=== PATIENT | female | born 1945 | race Caucasian/White ===

== ENCOUNTER 2018-06-02 10:35 | Outpatient (CLI) | payer MEDICARE, SELFPAY ==
[2018-06-02 13:42] LABS: ALT 33 U/L (12-78); AST 25 U/L (15-37); Albumin 3.8 g/dL (3.4-5.0); Alkaline Phosphatase 73 U/L (46-116); Anion Gap 6.3 mmol/L (3-11); BUN 17 mg/dL (7-18); Bilirubin, Total 0.7 mg/dL (0.2-1.0); CO2 28.7 mmol/L (21.0-32.0); CREATININE 1.35 mg/dL (0.55-1.02); Chloride 104 mmol/L (98-107); Estimated GFR 38.33 (mL/min/1.73m2); Glucose 115 mg/dL (70-100); Potassium 5.3 mmol/L (3.5-5.1); Sodium 139 mmol/L (136-145); Total Protein 7.2 g/dL (6.4-8.2)
[2018-06-02 13:47] LABS: Calcium 10.3 mg/dL (8.5-10.1)
== END 2018-06-02 10:55 ==
PROVIDERS: PCP Family Medicine
DX: E03.9 Hypothyroidism, unspecified (principal)
CPT/HCPCS: 36415; 80053

== ENCOUNTER 2018-06-10 01:57 | Outpatient (CLI) | payer MEDICARE, OTHER, SELFPAY ==
--- NOTE | 2018-06-30 11:59 | ZIOP_ITS ---
ZIO PATCH DATE OF DICTATION June 30, [address] 13 days, 17 hours, June 10 - June 23, 2018 INTERPRETATION Baseline rhythm sinus. Occasional single PAC. 96 bursts SVT, longest 17 beat duration, fastest 174 beats per minute. Rare single PVC. Rare couplet. Nonsustained VT noted three times, longest run 13 beat duration, faste st 162 beats per minute. No bradycardia. No triggered events. No symptoms. Average heart rate sinus, 66 beats per minute, range 48-129 beats per minute. Surendra Roman M.D. LUIS CARLOS/domenico T - 06/30/2018
== END 2018-06-10 02:17 ==
PROVIDERS: PCP Family Medicine
DX: R07.89 Other chest pain (principal); I49.9 Cardiac arrhythmia, unspecified; I47.1 Supraventricular tachycardia
CPT/HCPCS: 93225

== ENCOUNTER 2018-06-30 09:20 | Outpatient (CLI) | payer MEDICARE, OTHER, SELFPAY | END 2018-06-30 09:40 | PROVIDERS: PCP Family Medicine; Referring Provider Family Medicine; Visit Provider Internal Medicine Interventional Cardiology | DX: R07.89 Other chest pain (principal); I49.9 Cardiac arrhythmia, unspecified; I47.1 Supraventricular tachycardia | CPT/HCPCS: 0298T ==

== ENCOUNTER 2018-11-29 01:46 | Outpatient (CLI) | payer MEDICARE, OTHER, SELFPAY ==
[2018-11-29 10:03] LABS: ALT 30 U/L (12-78); AST 20 U/L (15-37); Albumin 3.7 g/dL (3.4-5.0); Alkaline Phosphatase 73 U/L (46-116); Anion Gap 10.2 mmol/L (3-11); BUN 10 mg/dL (7-18); Bilirubin, Total 0.7 mg/dL (0.2-1.0); CO2 26.8 mmol/L (21.0-32.0); CREATININE 1.17 mg/dL (0.55-1.02); Calcium 9.2 mg/dL (8.5-10.1); Chloride 105 mmol/L (98-107); Estimated GFR 45.09 (mL/min/1.73m2); Glucose 99 mg/dL (70-100); Sodium 142 mmol/L (136-145); Total Protein 6.7 g/dL (6.4-8.2)
== END 2018-11-29 02:06 ==
PROVIDERS: PCP Family Medicine
DX: G46.4 Cerebellar stroke syndrome (principal); H92.01 Otalgia, right ear; I10 Essential (primary) hypertension; I47.2 Ventricular tachycardia; K62.5 Hemorrhage of anus and rectum; M81.0 Age-related osteoporosis without current pathological fracture
CPT/HCPCS: 36415; 80053

== ENCOUNTER 2019-05-31 02:10 | Outpatient (CLI) | payer MEDICARE, OTHER, SELFPAY ==
[2019-05-31 08:36] LABS: ALT 23 U/L (14-59); AST 24 U/L (15-37); Albumin 3.8 g/dL (3.4-5.0); Alkaline Phosphatase 71 U/L (46-116); Anion Gap 4.7 mmol/L (3-11); BUN 15 mg/dL (7-18); Bilirubin, Total 0.7 mg/dL (0.2-1.0); CO2 29.3 mmol/L (21.0-32.0); CREATININE 1.16 mg/dL (0.55-1.02); Calcium 9.3 mg/dL (8.5-10.1); Chloride 105 mmol/L (98-107); Estimated GFR 45.54 (mL/min/1.73m2); Glucose 108 mg/dL (74-106); Potassium 4.9 mmol/L (3.5-5.1); Sodium 139 mmol/L (136-145); Total Protein 7.3 g/dL (6.4-8.2)
== END 2019-05-31 02:30 ==
PROVIDERS: PCP Family Medicine
DX: N25.9 Disorder resulting from impaired renal tubular function, unspecified (principal)
CPT/HCPCS: 36415; 80053

== ENCOUNTER 2019-11-02 02:24 | Outpatient (CLI) | payer MEDICARE, OTHER, SELFPAY ==
[2019-11-02 08:46] LABS: BUN 17 mg/dL (7-18); CREATININE 1.53 mg/dL (0.55-1.02); Calcium 8.9 mg/dL (8.5-10.1); Chloride 103 mmol/L (98-107); Glucose 111 mg/dL (74-106); Potassium 4.4 mmol/L (3.5-5.1); Sodium 138 mmol/L (136-145)
== END 2019-11-02 02:44 ==
PROVIDERS: PCP Family Medicine
DX: I10 Essential (primary) hypertension; N28.9 Disorder of kidney and ureter, unspecified; H93.90 Unspecified disorder of ear, unspecified ear
CPT/HCPCS: 36415; 80048

== ENCOUNTER 2020-02-23 02:32 | Outpatient (CLI) | payer MEDICARE, OTHER, SELFPAY ==
[2020-02-23 09:34] LABS: BUN 14 mg/dL (7-18); CREATININE 1.26 mg/dL (0.55-1.02); Calcium 9.3 mg/dL (8.5-10.1); Calculated LDL 141 mg/dL (<100); Chloride 102 mmol/L (98-107); Cholesterol 219 mg/dL (<200); Estimated GFR 41.29 (mL/min/1.73m2); Glucose 112 mg/dL (74-106); HDL Cholesterol 43 mg/dL (40-60); Potassium 5.1 mmol/L (3.5-5.1); Sodium 139 mmol/L (136-145); Triglyceride 176 mg/dL (<150)
== END 2020-02-23 02:52 ==
DX: I10 Essential (primary) hypertension (principal); N25.9 Disorder resulting from impaired renal tubular function, unspecified; E78.00 Pure hypercholesterolemia, unspecified
CPT/HCPCS: 36415; 80048; 80061

== ENCOUNTER 2022-04-25 01:08 | Outpatient (CLI) | payer MEDICARE, SELFPAY ==
[2022-04-25 10:39] LABS: ALT 20 U/L (14-59); AST 26 U/L (15-37); Albumin 3.8 g/dL (3.4-5.0); Alkaline Phosphatase 63 U/L (46-116); Anion Gap 5.6 mmol/L (3-11); BUN 15 mg/dL (7-18); Bilirubin, Total 0.7 mg/dL (0.2-1.0); CO2 29.4 mmol/L (21.0-32.0); CREATININE 1.3 mg/dL (0.55-1.02); Calcium 9.6 mg/dL (8.5-10.1); Calculated LDL 154 mg/dL (<100); Chloride 99 mmol/L (98-107); Cholesterol 225 mg/dL (<200); Estimated GFR 42.09 (mL/min/1.73m2); Glucose 112 mg/dL (74-106); HDL Cholesterol 44 mg/dL (40-60); Potassium 4.3 mmol/L (3.5-5.1); Sodium 134 mmol/L (136-145); Total Protein 7.6 g/dL (6.4-8.2); Triglyceride 139 mg/dL (<150)
== END 2022-04-25 01:09 | disposition home or self-care (01) ==
LOC: LOS 01:08
PROVIDERS: PCP Family Medicine; Visit Provider Family Medicine
DX: E78.00 Pure hypercholesterolemia, unspecified (principal); I10 Essential (primary) hypertension; N25.9 Disorder resulting from impaired renal tubular function, unspecified
CPT/HCPCS: 36415; 80053; 80061

== ENCOUNTER 2022-05-27 21:54 | Outpatient (REF) | payer MEDICARE, SELFPAY ==
[2022-05-27 22:43] LABS: Bilirubin Negative (Negative); Blood Negative (Negative); Clarity Clear (Clear); Glucose Negative (Negative); Ketones Negative (Negative); Leukocyte Esterase Small (Negative); Nitrite Negative (Negative); Specific Gravity 1.015 (1.005-1.025); Urobilinogen 0.2 EU/dL (Up TO 0.2)
[2022-05-27 23:01] LABS: Bacteria Rare HPF (Negative); C & S Indicated? Yes; Crystals Negative HPF (Negative); Epithelial Cells Few HPF (Negative); Mucus Trace (Negative); RBC Negative HPF (0-2)
[2022-05-27 23:11] LABS: COMMENT (LAB VIEW ONLY) 56.63 mg/dL; Microalb ug/mg Crea 29.5 ug/mg Cr
== END 2022-05-27 21:55 | disposition home or self-care (01) ==
LOC: LBN 21:54
PROVIDERS: PCP Family Medicine; Visit Provider Family Medicine
DX: I10 Essential (primary) hypertension (principal); N25.89 Other disorders resulting from impaired renal tubular function; R30.0 Dysuria
CPT/HCPCS: 81003; 81015; 82043; 82570; 87086

== ENCOUNTER 2022-08-14 03:21 | Outpatient (CLI) | payer MEDICARE, SELFPAY ==
[2022-08-14 13:17] LABS: BUN 14 mg/dL (7-18); CREATININE 1.2 mg/dL (0.55-1.02); Calcium 9.6 mg/dL (8.5-10.1); Chloride 100 mmol/L (98-107); Estimated GFR 46.33 (mL/min/1.73m2); Glucose 89 mg/dL (74-106); Potassium 4.6 mmol/L (3.5-5.1); Sodium 134 mmol/L (136-145)
== END 2022-08-14 03:22 | disposition home or self-care (01) ==
LOC: LBO 03:21
PROVIDERS: PCP Family Medicine; Visit Provider Family Medicine
DX: I10 Essential (primary) hypertension (principal)
CPT/HCPCS: 36415; 80048

== ENCOUNTER 2023-08-26 08:48 | Outpatient (CLI) | payer MEDICARE, SELFPAY ==
[2023-08-26 16:47] LABS: Anion Gap 9.5 mmol/L (3-11); BUN 19 mg/dL (7-18); CO2 27.5 mmol/L (21.0-32.0); CREATININE 1.3 mg/dL (0.55-1.02); Calcium 9.7 mg/dL (8.5-10.1); Calculated LDL 163 mg/dL (<100); Chloride 104 mmol/L (98-107); Cholesterol 241 mg/dL (<200); Estimated GFR 41.83 (mL/min/1.73m2); Glucose 100 mg/dL (74-106); HDL Cholesterol 51 mg/dL (40-60); Potassium 4.4 mmol/L (3.5-5.1); Sodium 141 mmol/L (136-145); Triglyceride 139 mg/dL (<150)
== END 2023-08-26 08:49 | disposition home or self-care (01) ==
LOC: LOS 08:48
PROVIDERS: PCP Family Medicine; Referring Provider Family Medicine; Visit Provider Family Medicine
DX: I10 Essential (primary) hypertension (principal); Z13.6 Encounter for screening for cardiovascular disorders; E78.00 Pure hypercholesterolemia, unspecified
CPT/HCPCS: 36415; 80048; 80061

== ENCOUNTER 2024-03-14 01:41 | Outpatient (CLI) | payer MEDICARE, SELFPAY ==
--- NOTE | 2024-03-14 07:45 | DI.DEXA_ITS ---
Exam(s) XR DEXA BONE DENSITY W/WO LA EXAM: XR DEXA BONE DENSITY W/WO LA CLINICAL HISTORY: Screening for osteoporosis,menopausal disorder,n95.9 TECHNIQUE: COMPARISON: DX LA from 12/27/2008 FINDINGS: Lateral Spine Image: Unremarkable. No compression deformities identified. Left hip: Total T-Score: -2.4. This compares to -2.5 on the prior examination. Total Z-Score: -0.4 T- and Z-scores: Findings are consistent with osteopenia. There is osteoporosis in the femoral neck with a T-score of -2.9. Lumbar Spine: Total T-Score: -1.2. This compares to -2.1 on the prior examination. Total Z-Score: 1.5 T- and Z-scores: Findings are consistent with osteopenia. There is no evidence of osteoporosis. Left forearm: Total T-score: -3.3 Total Z-score:-0.2 T and Z-score is: Findings are consistent with osteoporosis. IMPRESSION: Osteoporosis in the left femoral neck and the left forearm.
== END 2024-03-14 02:01 ==
LOC: DI 01:42
PROVIDERS: PCP Family Medicine; Visit Provider Family Medicine
DX: N95.9 Unspecified menopausal and perimenopausal disorder (principal); Z13.820 Encounter for screening for osteoporosis; M81.0 Age-related osteoporosis without current pathological fracture
CPT/HCPCS: 77080

== ENCOUNTER 2024-09-01 10:12 | Outpatient (CLI) | payer MEDICARE, SELFPAY ==
[2024-09-01 10:52] LABS: COMMENT (LAB VIEW ONLY) 92.17 mg/dL; PROTEIN 17.9 mg/dL; Prot/Crea Ur Ratio 0.19
[2024-09-01 11:01] LABS: ALT 26 U/L (14-59); AST 23 U/L (15-37); Albumin 3.8 g/dL (3.4-5.0); Alkaline Phosphatase 68 U/L (46-116); Anion Gap 8.1 mmol/L (3-11); BUN 18 mg/dL (7-18); Bilirubin, Total 0.9 mg/dL (0.2-1.0); CO2 27.9 mmol/L (21.0-32.0); CREATININE 1.4 mg/dL (0.55-1.02); Calcium 9.5 mg/dL (8.5-10.1); Chloride 105 mmol/L (98-107); Estimated GFR 38.03 (mL/min/1.73m2); Glucose 107 mg/dL (74-106); Potassium 3.9 mmol/L (3.5-5.1); Sodium 141 mmol/L (136-145); Total Protein 7.4 g/dL (6.4-8.2)
[2024-09-01 11:34] LABS: Ferritin 91 ng/mL (8-252); Vitamin D 25 Total 41 ng/mL (30-100)
[2024-09-01 19:14] LABS: Parathyroid Hormone,Intact 48 pg/mL (19-88)
== END 2024-09-01 10:13 | disposition home or self-care (01) ==
LOC: LBO 10:12
PROVIDERS: PCP Family Medicine; Visit Provider Family Medicine
DX: N18.32 Chronic kidney disease, stage 3b (principal)
CPT/HCPCS: 36415; 80053; 82306; 82565; 82728; 83970; 84156

== ENCOUNTER 2025-02-23 09:48 | Outpatient (CLI) | payer MEDICARE, SELFPAY ==
--- NOTE | 2025-02-23 09:45 | RT.EKG_ITS ---
APPROVED REPORT Exam: Resting ECG Reason for Exam: Fainted Patient Location: O HR:71 bpm ECG Measurements Heart Rate 71 AXIS FL 154 P 26 QRSd 110 QRS -18 QT 404 T 38 QTc 439 Conclusion Sinus arrhythmia...V-rate 51- 79, variation>10% Probable left ventricular hypertrophy...(RaVL+SV3)xQRSd >300
== END 2025-02-23 09:49 | disposition home or self-care (01) ==
LOC: DI.CM 09:48
PROVIDERS: PCP Family Medicine; Visit Provider Nurse Practitioner Family
DX: R07.89 Other chest pain (principal)
CPT/HCPCS: 93010

== ENCOUNTER 2025-02-23 10:55 | Emergency (ER) | payer MEDICARE, SELFPAY ==
[2025-02-23] VITALS (34 sets, daily range): BP systolic 130–160; BP diastolic 58–132; PULSE 66–87; RESP 15–31; TEMP 37.3; O2SAT 92–99
--- NOTE | 2025-02-23 10:45 | RT.EKG_ITS ---
APPROVED REPORT Exam: Resting ECG Reason for Exam: ekg Patient Location: E HR:70 bpm ECG Measurements Heart Rate 70 AXIS LA 180 P 51 QRSd 94 QRS 1 QT 410 T 40 QTc 443 Conclusion Sinus rhythm...normal P axis, V-rate 60- 99 No Occlusion MN
--- NOTE | 2025-02-23 10:57 | ED.GENADUL_ITS ---
Discharge Plan Disposition Patient Disposition: Against Medical Advice Discharge Details Clinical Impression: Leukopenia, Thrombocytopenia, Erythrocytosis, Acute hyponatremia Primary Care Provider: [facility] ED Provider: Trever Del Valle Home Meds and New Rx's Prescriptions: Continued losartan 100 mg tablet 100 mg PO DAILY Qty: 90 3RF calcium carbonate-vitamin D3 1 EACH tablet 1 ea PO DAILY Rx Instructions: 600mg/800iu aspirin 325 MG tablet 325 mg PO DAILY atenolol 50 mg tablet 50 mg PO DAILY Qty: 90 3RF atorvastatin 20 mg tablet 20 mg PO QHS Qty: 90 3RF Discharge Instructions Additional Instructions: You were seen in the emergency department in the setting of your episode of feeling lightheaded. As we discussed there is a risk that you could have a seizure or dangerous rhythm in your heart or you could . It was recommended that you remain overnight in the hospital for monitoring. You declined and elected to withdraw your consent for care. You signed out AGAINST MEDICAL ADVICE. If you change your mind or you feel unwell or if you have any other concerns please return to the emergency department. Otherwise please follow-up with your primary care provider. You had multiple abnormalities in your blood work. Your sodium level was low. Your red blood cell count was high. Both your platelets and your white blood cell counts were low. If you develop fevers or any other concerns please return to the emergency department. Discharge Data Discharge Date/Time-TO BE ENTERED AT DEPARTURE: 02/23/25 14:13 HPI General Date/Time Provider Initiated Documentation: 02/23/25 10:56 . HPI Narrative: MDM This is an overall very well-appearing normothermic and nontachycardic 79-year-old female with presyncopal episode remote history of V. tach concern for the possibility of dysrhythmia versus ischemia in setting of prehospital ECG depressions for which patient will undergo troponin testing and assessment of basic electrolytes. Patient is neurologically intact without any focal weaknesses nor dizziness so not suspicion for CVA and do not feel patient would be a TNK candidate. In the absence of dizziness and nystagmus I did not apply the hints exam. Patient no pain out of proportion to suggest necrotizing soft tissue infection. No cough nor abnormal lung sounds to suggest pneumonia. No black nor bloody stools to suggest symptomatic anemia from GI bleed so did not send type and screen. I considered PE however in the absence of shortness of breath chest pain tachycardia and hypoxia I felt that the risks of dimer testing with downstream angio outweighed the benefits. Soft nontender abdomen so I am not suspicious for intra-abdominal infection. No dysuria or frequency to suggest UTI. Patient does not endorse sudden onset headache to suggest increased risk for subarachnoid hemorrhage. No recent chiropractic manipulation to suggest increased risk for cervical arterial dissection. No rash to neck to suggest zoster. No history of head strike to suggest benefit from CT head. Per Nexus criteria, cervical CT not obtained. The patient had no c-spine midline tenderness, no evidence of intoxication, was AAOx3, had no focal neurological deficits, and no painful distracting injuries. 12:07 PM CBC shows leukopenia and new thrombocytopenia with erythrocytosis. Differential includes dehydration-related hemoconcentration, evolving myeloproliferative or myelodysplastic process, medication effect, or less likely early infectious etiology. No current evidence of hemodynamic instability or overt ACS. 12:47 PM CBC shows CKD no superimposed JOANA. Mildly elevated BUN. Mild gap acidosis but normal bicarbonate??not consistent with DKA. Mild hyponatremia. Normal reassuring calcium. Normal reassuring magnesium. Initial normal reassuring troponin. Patient's hyponatremia is new compared to prior. Given that she is not symptomatic I do not feel as if she requires hypertonic saline at this juncture. 1:52 PM I met with the patient. She continues to feel improved. She was not dizzy nor having chest pain. Her repeat troponin was reassuring. I did advise her of her low sodium level. I recommended hospitalization. She declined. She said that she had 2 dogs. She said that there is no one to take care of her dogs. I asked her if her friend would be willing to help. She said that this was not an option. We discussed that there is risks of hyponatremia including syncope sei zures . There is also possibility that she had had a dysrhythmia causing her presyncopal episode. She understood these risks and requested discharge. We discussed that if she had recurrent symptoms or had any concerns that she should return to the emergency department. I requested to speak to the patient's children. Advised patient that I felt that her children would advise hospitalization. She preferred that I did not speak with her children. 1. I explained the current situation and condition to the patient. 2. I explained the recommended treatment for this condition ?hospitalization for monitoring on telemetry trending troponins and monitoring sodium levels 3. I explained the risk of not having the recommended treatment ?seizures dysrhythmia and 4. The patient understands this information has no questions, and repeated back this information. 5. The patient states that they need to leave and will return if her symptoms worsen 6. Mental status is lucid and the patient has decision-making capacity. 7. Patient is withdrawing her consent for care. I advised her that if she had any other concerns or change her mind that she should return to the emergency department. She understood her return indications and withdrew her consent for care. Diagnostic interpretations performed by me: Per my independent interpretation EKG shows: Narrow complex normal sinus rhythm at a rate of 70. Normal axis. Intervals within normal limits. No ST segment abnormalities. No T wave inversions. Compared to prior dated earlier today sinus rhythm has replaced sinus arrh ythmia. Patient now has normal axis. Patient does have persistent ST segment depressions in V6. HPI This is a patient with a history of a recent fall presenting for evaluation. The patient experienced a fall this morning after taking a shower, which was unusual as she typically does not shower frequently. After applying soap, she felt herself gently falling to the floor. She did not sustain any head injury or lose consciousness during the incident. She did not experience any lightheadedness prior to the fall. Post-fall, she consumed breakfast and contacted her son, who advised her to seek medical attention. She sought care at an urgent care facility where an EKG was performed, revealing some abnormalities suggestive of a potential cardiac event. Currently, she reports feeling well and is not experiencing any chest pain, abdominal pain, dysuria, or weakness in her extremities. She also reports no difficulty breathing. She had been experiencing neck discomfort since the morning, but this resolved after her fall. She describes a sensation of an unhappy feeling rather than a headache. She has not experienced any episodes of vomiting or nausea since she was 10 years old. Exam General: Well-appearing in no acute distress speaking in complete sentences. Head: Normocephalic, atraumatic. Eye:[Pupils equal, round reactive to light.] Extraocular eye movements intact. No conjunctival injection. No scleral icterus. Ear, nose, mouth, throat: Grossly normal inspection. Normal voice, handling secretions normally. Neck: Trachea midline. Cardiovascular: Well-perfused distal extremities. Regular rate and rhythm. Respiratory: Nonlabored respiration. Clear lungs bilaterally. Gastrointestinal: Nondistended abdomen. Soft. Nontender. Musculoskeletal: No edema. Moving all 4 extremities spontaneously. Skin: Normal for age and race, grossly normal temperature and turgor. No acute rash. Neurologic: Alert and appropriate, no apparent acute deficits. Cranial nerves I I through XII intact grossly. No dysmetria. Visual chase intact by confrontation. Psychiatric: Mood and manner are appropriate. Grooming and personal hygiene are appropriate. Related Data Home Medications ?Medication ?Instructions ?Recorded ?Confirmed calcium 600 mg (as 1 ea PO DAILY 07/27/1202/23 carbonate)-vitamin D3 5 mcg (200 unit) tablet aspirin 325 mg tablet 325 mg PO DAILY 01/24/14 atenolol 50 mg tablet 50 mg PO DAILY #90 tab-caps 08/01/24 02/23/25 atorvastatin 20 mg tablet 20 mg PO QHS #90 tabs 02/23/25 losartan 100 mg tablet 100 mg PO DAILY #90 tabs 02/23/25 Previous Rx's ?Medication ?Instructions ?Recorded atenolol 50 mg tablet 50 mg PO DAILY #90 tab-caps 08/01/24 atorvastatin 20 mg tablet 20 mg PO QHS #90 tabs losartan 100 mg tablet 100 mg PO DAILY #90 tabs Allergies Allergy/AdvReac Type Severity Reaction Status Date / Time amlodipine Allergy Severe Swelling/Ed Verified 02/23/25 11:01 ken rosuvastatin AdvReac Intermediate loose Verified 02/23/25 11:01 stools & incontinence tide detergent Allergy Severe RASH Uncoded 02/23/25 11:01 [facility] All Active Problems (Updated 02/23/25 @ 13:55 by Trever Del Valle MD) Acute hyponatremia (Acute) Erythrocytosis (Acute) Thrombocytopenia (Chronic) Leukopenia (Acute) CKD stage 3b, GFR 30-44 ml/min (Acute) Osteoporosis (Chronic) Hypercholesterolemia (Chronic 06/03/16) Hypertension (Chronic) Medical History History of tobacco use (1987) 15 packyr hx, quit 1987 Closed fracture of clavicle (11/08/07) Herpes zoster Ventricular tachycardia (01/24/14) History of [place] after TIA 2014 at [facility] [place] 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 No problems noted. Maternal Grandmother , 81 Essential hypertension Heart disease Paternal Grandmother Essential hypertension Heart disease Brother Essential hypertension Son No problems noted. Son No problems noted. Daughter Depression Family History CHF (congestive heart failure) Heart disease Myocardial infarction Social History Smoking/Tobacco Use Status: Former Tobacco Use tobacco type: cigarettes Quit Date: 05/11/87 Tobacco: How many years used: 26 Second Hand Exposure: Yes Smoking risk assessment performed?: Yes Alcohol Intake: current Alcohol Intake frequency: a few times a month Alcohol type: beer and wine Drug use: Never Substance use type: does not use Adopted: No Caregiver/Support person: No Foster care: No Household members: none Housing: house Number of Children: 3 number of grandchildren: 3 Communication Needs: Hard of Hearing Education Level: college Details: Doctorate in Education. 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 Pets and animals: Yes Pets and animals: dog(s) Sexually active: No Do you think of yourself as: straight/heterosexual Current gender identity: female What is your relationship status?: How often do you talk on the phone with friends or family?: three or more times per week How often do you get together with friends or relatives?: three or more times per week Do you belong to any clubs or organized social groups?: yes Panel score (0-1 are the most socially isolated patients): 2 What type of physical activity do you participate in: walking and other Details: hiking,yard work Duration: 30-45 minutes/day Frequency: daily Kylah/Rastafari: No preference Special kylah needs: No Seatbelt use: always Helmet use: No Drive intox or ride w/intox vibratory pile driver: No Working smoke detector in home: Yes Carbon monox detector in home: Yes Firearms in home: Yes Do you feel safe in your relationship?: Yes Victim of physical abuse: No Victim of sexual abuse: No Additional Social history: Enjoys travelling, caring for her poodles. Does volunteer work for [employer].
[2025-02-23 11:54] LABS: Abs Immature Grans 0.05 10^3/uL (0.0-0.06); HCT 47.2 % (36.0-46.0); HGB 16.1 g/dL (11.2-15.7); Immature Grans % 1.4 %; MCH 29.9 pg (27.0-33.0); MCHC 34.1 % (32.0-36.0); MCV 88 fL (80-95); MPV 10.7 fL (8.0-11.0); Platelet Count 107 10^3/uL (130-400); RBC 5.38 10^6/uL (3.93-5.22); RDW 12.5 % (11.7-14.6); RDW-SD 40.6 fL; WBC 3.70 10^3/uL (4.4-10.8)
[2025-02-23 12:36] LABS: Anion Gap 11.5 mmol/L (3-11); BUN 19 mg/dL (7-18); CO2 21.5 mmol/L (21.0-32.0); Calcium 8.6 mg/dL (8.5-10.1); Chloride 93 mmol/L (98-107); Estimated GFR 41.31 (mL/min/1.73m2); Glucose 126 mg/dL (74-106); Magnesium 2.1 mg/dL (1.8-2.4); Potassium 3.7 mmol/L (3.5-5.1); Sodium 126 mmol/L (136-145); Troponin I 11 ng/L (<or=51)
[2025-02-23 13:39] LABS: Troponin I 11 ng/L (<or=51)
== END 2025-02-23 14:13 | disposition left against medical advice (07) ==
PROVIDERS: Emergency Provider Emergency Medicine; PCP Family Medicine
DX: E87.1 Hypo-osmolality and hyponatremia (principal); D75.1 Secondary polycythemia; D69.6 Thrombocytopenia, unspecified; D72.819 Decreased white blood cell count, unspecified
CPT/HCPCS: 99284 ×2; 36415; 80048; 93005; 83735; 84484; 85025; 93010

== ENCOUNTER 2025-02-27 08:13 | Emergency (ER) | payer MEDICARE, SELFPAY ==
[2025-02-27] VITALS (47 sets, daily range): BP systolic 136–183; BP diastolic 67–99; PULSE 65–81; RESP 10–34; O2SAT 94–98
--- NOTE | 2025-02-27 08:15 | RT.EKG_ITS ---
APPROVED REPORT Exam: Resting ECG Reason for Exam: syncope Patient Location: E HR:77 bpm ECG Measurements Heart Rate 77 AXIS MI 148 P -1 QRSd 106 QRS -26 QT 399 T 5 QTc 451 Conclusion Sinus rhythm...normal P axis, V-rate 60- 99 Left ventricular hypertrophy...multiple voltage criteria
--- NOTE | 2025-02-27 08:15 | DI.RAD_ITS ---
Exam(s) XR PORTABLE CHEST AP EXAM: XR PORTABLE CHEST AP CLINICAL HISTORY: syncope TECHNIQUE: 2D digital imaging was performed of the chest. One image was obtained. An AP view was obtained. COMPARISON: No exams were available for comparison FINDINGS: MEDIASTINUM: Normal. HEART: Normal. PULMONARY VASCULATURE: Normal. LUNGS: There are no focal consolidating infiltrates. PLEURAL SPACE: No pleural effusion or pneumothorax. BONE:Within normal limits for the patient's age. OTHER FINDINGS:Normal. IMPRESSION: No acute pulmonary findings. DATA REPOSITORY: RADIATION DOSE DELIVERED:
[2025-02-27 09:08] LABS: Abs Immature Grans 0.08 10^3/uL (0.0-0.06); HCT 39.3 % (36.0-46.0); HGB 13.6 g/dL (11.2-15.7); MCH 29.6 pg (27.0-33.0); MCHC 34.6 % (32.0-36.0); MCV 85 fL (80-95); MPV 10.8 fL (8.0-11.0); Platelet Count 125 10^3/uL (130-400); RBC 4.60 10^6/uL (3.93-5.22); RDW 13.1 % (11.7-14.6); RDW-SD 40.9 fL; WBC 9.71 10^3/uL (4.4-10.8)
[2025-02-27 09:29] LABS: ALT 108 U/L (14-59); AST 98 U/L (15-37); Albumin 2.5 g/dL (3.4-5.0); Alkaline Phosphatase 278 U/L (46-116); Anion Gap 9.9 mmol/L (3-11); BUN 17 mg/dL (7-18); Bilirubin, Total 2.1 mg/dL (0.2-1.0); CO2 23.1 mmol/L (21.0-32.0); Calcium 8.2 mg/dL (8.5-10.1); Chloride 99 mmol/L (98-107); Estimated GFR 50.48 (mL/min/1.73m2); Glucose 119 mg/dL (74-106); Magnesium 2.0 mg/dL (1.8-2.4); Potassium 4.2 mmol/L (3.5-5.1); Sodium 132 mmol/L (136-145); Total Protein 6.2 g/dL (6.4-8.2); Troponin I 7 ng/L (<or=51)
[2025-02-27 09:48] LABS: Immature Grans % 0.0 %; RBC Morphology Normal
--- NOTE | 2025-02-27 10:48 | W.ED.GENAD ---
Discharge Plan Disposition Patient Disposition: Home Discharge Details Clinical Impression: Acute hyponatremia, Abnormal LFTs, Hypertension Primary Care Provider: Le Calix ED Provider: Gianfranco Sanchez Home Meds and New Rx's Prescriptions: No Action losartan 100 mg tablet 100 mg PO DAILY Qty: 90 3RF calcium carbonate-vitamin D3 1 EACH tablet 1 ea PO DAILY Rx Instructions: 600mg/800iu aspirin 325 MG tablet 325 mg PO DAILY atenolol 50 mg tablet 50 mg PO DAILY Qty: 90 3RF atorvastatin 20 mg tablet 20 mg PO QHS Qty: 90 3RF Discharge Instructions Instructions: Dehydration, Adult ED, Dementia ED Additional Instructions: Please follow-up with your primary care provider regarding your visit to the emergency department today. Be sure to discuss results of all test performed here today to include radiology, and laboratory testing as well as results for any pending cultures. Be sure to discuss with your doctor further care and follow-up for dementia, and if they would recommend follow-up with a neurologist. As discussed, your sodium levels were improved however still somewhat decreased. I would advise continuation of drinking electrolyte drinks and eating plenty of food, as I suspect this was the underlying cause of your presentation to the emergency department this past . Should your symptoms worsen, or if you develop new concerning symptoms, please return immediately emergency department for further evaluation. Discharge Data Discharge Date/Time-TO BE ENTERED AT DEPARTURE: 02/27/25 14:39 HPI General Date/Time Provider Initiated Documentation: 02/27/25 08:15. HPI Narrative: MDM/Narrative: 79-year-old female with a past medical history of hypertension, CKD presents for confusion. Given recent workup notable for significant hyponatremia, there is concern for altered mental status secondary to persistent hyponatremia although by history this is improved with improved oral intake administered by her son. Although CVA is on the differential, I would be less suspicious of the cause of this patient's symptoms in the setting of known hyponatremia, no other focal neurologic deficit, and improving overall mental status. However given concern for stroke will obtain CTA brain and neck, to assess for possible recent strokes or other explanation for the patient's symptoms. Otherwise we will assess for other causes of possible encephalopathy to include metabolic and infectious etiology with urine testing, blood work, chest x-ray. ED course: Labs notable for mild transaminitis and elevated alk phos and total bilirubin patient without any abdominal tenderness nausea or vomiting, these findings are of unclear significance and will instruct them to follow-up in outpatient setting. Sodium today is 132 significantly improved from previous level of 126, at this time not requiring patient's therapy we will continue to advise p.o. intake of electrolyte beverages and food with free water restriction. CT imaging negative for any acute findings however significant microvascular atrophy noted as well as some encephalomalacia which I suspect is likely the true underlying cause of the patient's worsening forgetfulness as per the son. Plan of care discussed with the patient and her son, patient states that she is feeling much better, they are both in agreement with plan to follow-up with Dr. Calix and her PCP for further management and likely referral to neurology for treatment of suspected mild microvascular dementia. 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 Patient is at this time accompanied by her adult son who is concerned that she has not been behaving correctly. He notes that she is more forgetful than normal, and after she left the hospital against medical vice he drove up from [place] to stay with her for the weekend. He notes that initially she was severely confused, and was having difficulty eating. He noted that since her salt level was low he brought multiple electrolyte plenty drinks, which she has been using over the weekend and her mental status has significantly improved. Today when they were attempting to arrange follow-up appointments with her primary care, they were unable to have an appointment today and they were advised to come to the emergency department for further eval. They note that 4 days ago prior to presenting the emergency department she fell down and is unclear if she passed out or not, she has no prior seizure history, denies any associated chest pain, nausea, vomiting, or similar symptoms since then. Also denies any acute injuries at the time of fall. The son is concerned that given her family history of strokes that she may have a stroke which would be accounting for her behavior. ROS: Negative besides as mentioned above Exam: Gen: A&O NAD HEENT: NCAT, EOMI, not icteric. External ears normal. No rhinorrhea. Moist mucous membranes. Neck: Supple, full range of motion, no observable masses, No meningeal sign. Lungs: No Respiratory distress. CV: RRR, no edema. Abdomen: Soft, nondistended, No rebound tenderness. MSK: No joint swelling, no redness. Skin: No rashes, petechiae, lesions. Normal color per patient. Neuro: Normal Gait, Grossly intact. Psych: Appropriate for situation. Rhythm: NSR Rate: [] [place]: Normal axis Intervals: Normal intervals Other findings: No acute ST segment or T wave changes to suggest acute ischemia. Labs: Laboratory Tests Range/Units 02/27/25 02/27/25 09:00 10:40 WBC (4.4-10.8) 10^3/uL 9.71 RBC (3.93-5.22) 10^6/uL 4.60 Hgb (11.2-15.7) g/dL 13.6 Hct (36.0-46.0) % 39.3 MCV (80-95) fL 85 MCH (27.0-33.0) pg 29.6 MCHC (32.0-36.0) % 34.6 RDW (11.7-14.6) % 13.1 Plt Count (130-400) 10^3/uL 125 L MPV (8.0-11.0) fL 10.8 Immature Gran % % 0.0 Neutrophils % % 74.0 Lymphocytes % % 15.0 Atypical Lymphs % % 5 Monocytes % % 6.0 Eosinophils % % 0.0 Basophils % % 0.0 Nucleated RBC % (0.0-0.3) % 0.0 Absolute Neutrophils (1.2-6.7) 10^3/uL 7.19 H Absolute Lymphocytes (1.2-3.4) 10^3/uL 1.94 Absolute Monocytes (0.1-0.8) 10^3/uL 0.58 Absolute Eosinophils (0.0-0.7) 10^3/uL 0.00 Absolute Basophils (0.0-0.2) 10^3/uL 0.00 RBC Morphology Normal VBG Lactate (<or=2.0) mmol/L 1.2 Sodium (136-145) mmol/L 132 L Potassium (3.5-5.1) mmol/L 4.2 Chloride (98-107) mmol/L 99 Carbon Dioxide (21.0-32.0) mmol/L 23.1 Anion Gap (3-11) mmol/L 9.9 BUN (7-18) mg/dL 17 Creatinine (0.55-1.02) mg/dL 1.1 H Est GFR (CKD-EPI 2020) (mL/min/1.73m2) 50.48 Glucose (74-106) mg/dL 119 H Calcium (8.5-10.1) mg/dL 8.2 L Magnesium (1.8-2.4) mg/dL 2.0 Total Bilirubin (0.2-1.0) mg/dL 2.1 H AST (15-37) U/L 98 H ALT (14-59) U/L 108 H Alkaline Phosphatase (46-116) U/L 278 H Troponin I (<or=51) ng/L 7 7 Total Protein (6.4-8.2) g/dL 6.2 L Albumin (3.4-5.0) g/dL 2.5 L Radiology: Exam(s) XR PORTABLE CHEST AP EXAM: XR PORTABLE CHEST AP CLINICAL HISTORY: syncope TECHNIQUE: 2D digital imaging was performed of the chest. One image was obtained. An AP view was obtained. COMPARISON: No exams were available for comparison FINDINGS: MEDIASTINUM: Normal. HEART: Normal. PULMONARY VASCULATURE: Normal. LUNGS: There are no focal consolidating infiltrates. PLEURAL SPACE: No pleural effusion or pneumothorax. BONE:Within normal limits for the patient's age. OTHER FINDINGS:Normal. IMPRESSION: No acute pulmonary findings. Exam(s) CT BRAIN NECK CTA EXAM: CT BRAIN NECK CTA CLINICAL HISTORY: syncope. TECHNIQUE: Imaging Protocol: Axial CT angiography was performed with multi-slice acquisition and multi-planar and/or 3D reconstructions. CONTRAST MATERIAL: Intravenous: Omnipaque 350 contrast volume:70 mL COMPARISON: CT HEAD WITHOUT CONTRAST from 01/02/2014 FINDINGS: CT Head W/O and W: Ventricles and Extra axial spaces: Normal in size and morphology for the patient's age. Hemorrhage: None. Cerebral parenchyma: There are areas of decreased attenuation in the white matter consistent with chronic microvascular ischemic disease. There is an area of encephalomalacia involving the left cerebellum. No evidence of an acute territorial infarct is seen at this time. Midline shift: None. Brainstem/Cerebellum: Normal. Calvarium: Normal. Visualized Paranasal sinuses/Mastoids: Clear. Soft Tissues: Unremarkable. Enhancement: Unremarkable. CTA Neck W: Common Carotid: Right: No dissection, occlusion or significant stenosis. Left: No dissection, occlusion or significant stenosis. External Carotid: Right: No occlusion or significant stenosis. Left: No occlusion or significant stenosis. Internal Carotid: Right: No dissection, occlusion or significant stenosis. Left: No dissection, occlusion or significant stenosis. Mild atherosclerotic calcification in the proximal internal carotid artery but no significant stenosis is present. Vertebral Artery: Right: No dissection, occlusion or significant stenosis. Left: No dissection, occlusion or significant stenosis. Lung Apices: Moderately severe centrilobular emphysematous changes are present. Bones: Within normal limits for the patient's age. Soft Tissues: Normal. Thyroid gland: Unremarkable. CTA Brain W: Internal Carotid Arteries: There is mild atherosclerotic calcification in the cavernous portions of the internal carotid arteries bilaterally but no significant stenosis is seen. No aneurysm or occlusion is present. Anterior Cerebral Arteries: Right: No aneurysm, occlusion or significant stenosis. Left: No aneurysm, occlusion or significant stenosis. Middle Cerebral Arteries: Right: No aneurysm, occlusion or significant stenosis. Left: No aneurysm, occlusion or significant stenosis. Posterior Cerebral Arteries: Both posterior cerebral arteries arise predominantly from the posterior communicating arteries which is a normal variant. Right: No aneurysm, occlusion or significant stenosis. Left: No aneurysm, occlusion or significant stenosis. Vertebral Arteries: Right: No aneurysm, occlusion or significant stenosis. Left: No aneurysm, occlusion or significant stenosis. Basilar Artery: No aneurysm, occlusion or significant stenosis. IMPRESSION: 1. No large vessel occlusion or significant stenosis on the CT angiography of the head. 2. No acute intracranial process. 3. No occlusion or significant stenosis on the CT angiography of the neck. Related Data Home Medications ?Medication ?Instructions ?Recorded ?Confirmed calcium 600 mg (as 1 ea PO DAILY 07/27/12 02/27/25 carbonate)-vitamin D3 5 mcg (200 unit) tablet aspirin 325 mg tablet 325 mg PO DAILY 01/24/14 02/27/25 atenolol 50 mg tablet 50 mg PO DAILY #90 tab-caps 08/01/24 02/23/25 atorvastatin 20 mg tablet 20 mg PO QHS #90 tabs 08/08/24 02/27/25 losartan 100 mg tablet 100 mg PO DAILY #90 tabs 08/31/24 02/27/25 Previous Rx's ?Medication ?Instructions ?Recorded atenolol 50 mg tablet 50 mg PO DAILY #90 tab-caps 08/01/24 atorvastatin 20 mg tablet 20 mg PO QHS #90 tabs 08/08/24 losartan 100 mg tablet 100 mg PO DAILY #90 tabs 08/31/24 Allergies Allergy/AdvReac Type Severity Reaction Status Date / Time amlodipine Allergy Severe Swelling/Ed Verified 02/27/25 08:33 ken rosuvastatin AdvReac Intermediate loose Verified 02/27/25 08:33 stools & incontinence tide detergent Allergy Severe RASH Uncoded 02/27/25 08:33 General Stated Complaint: AMS/LOC JENNIFER: 3 Course Vital Signs Vital signs: Vital Signs Pulse 74 02/27/25 08:27 Respiratory Rate 20 02/27/25 08:27 Blood Pressure 146/85 H 02/27/25 08:27 Pulse Oximetry 98 02/27/25 08:27 Pulse 66 02/27/25 10:40 Pulse 72 02/27/25 10:40 Respiratory Rate 17 02/27/25 10:40 Respiratory Effort Normal 02/27/25 09:02 Respiratory Depth Normal 02/27/25 09:02 Blood Pressure 168/77 H 02/27/25 10:36 Blood Pressure Mean 110 02/27/25 10:36 Blood Pressure Position Sitting 02/27/25 08:27 Pulse Oximetry 95 02/27/25 10:40 Oxygen Delivery Method Room Air 02/27/25 08:27 Oxygen Flow Rate 0 02/27/25 08:27 Pain Level 0 02/27/25 08:27 Lab/Test Results Lab/Test Results: Laboratory Tests Range/Units 02/27/25 09:00 WBC (4.4-10.8) 10^3/uL 9.71 RBC (3.93-5.22) 10^6/uL 4.60 Hgb (11.2-15.7) g/dL 13.6 Hct (36.0-46.0) % 39.3 MCV (80-95) fL 85 MCH (27.0-33.0) pg 29.6 MCHC (32.0-36.0) % 34.6 RDW (11.7-14.6) % 13.1 Plt Count (130-400) 10^3/uL 125 L MPV (8.0-11.0) fL 10.8 Immature Gran % % 0.0 Neutrophils % % 74.0 Lymphocytes % % 15.0 Atypical Lymphs % % 5 Monocytes % % 6.0 Eosinophils % % 0.0 Basophils % % 0.0 Nucleated RBC % (0.0-0.3) % 0.0 Absolute Neutrophils (1.2-6.7) 10^3/uL 7.19 H Absolute Lymphocytes (1.2-3.4) 10^3/uL 1.94 Absolute Monocytes (0.1-0.8) 10^3/uL 0.58 Absolute Eosinophils (0.0-0.7) 10^3/uL 0.00 Absolute Basophils (0.0-0.2) 10^3/uL 0.00 RBC Morphology Normal VBG Lactate (<or=2.0) mmol/L 1.2 Sodium (136-145) mmol/L 132 L Potassium (3.5-5.1) mmol/L 4.2 Chloride (98-107) mmol/L 99 Carbon Dioxide (21.0-32.0) mmol/L 23.1 Anion Gap (3-11) mmol/L 9.9 BUN (7-18) mg/dL 17 Creatinine (0.55-1.02) mg/dL 1.1 H Est GFR (CKD-EPI 2020) (mL/min/1.73m2) 50.48 Glucose (74-106) mg/dL 119 H Calcium (8.5-10.1) mg/dL 8.2 L Magnesium (1.8-2.4) mg/dL 2.0 Total Bilirubin (0.2-1.0) mg/dL 2.1 H AST (15-37) U/L 98 H ALT (14-59) U/L 108 H Alkaline Phosphatase (46-116) U/L 278 H Troponin I (<or=51) ng/L 7 Total Protein (6.4-8.2) g/dL 6.2 L Albumin (3.4-5.0) g/dL 2.5 L PFSH All Active Problems (Updated 02/27/25 @ 16:03 by Gianfranco Sanchez MD) Abnormal LFTs (Acute) Acute hyponatremia (Acute) Erythrocytosis (Acute) Thrombocytopenia (Chronic) Leukopenia (Acute) CKD stage 3b, GFR 30-44 ml/min (Acute) Osteoporosis (Chronic) Hypercholesterolemia (Chronic 06/03/16) Hypertension (Chronic) Medical History History of tobacco use (1987) 15 packyr hx, quit 1987 Closed fracture of clavicle (11/08/07) Herpes zoster Ventricular tachycardia (01/24/14) History of VT after TIA 2013 at [facility] 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 No problems noted. Maternal Grandmother , 81 Essential hypertension Heart disease Paternal Grandmother Essential hypertension Heart disease Brother Essential hypertension Son No problems noted. Son No problems noted. Daughter Depression Family History CHF (congestive heart failure) Heart disease Myocardial infarction Social History Smoking/Tobacco Use Status: Former Tobacco Use tobacco type: cigarettes Quit Date: 05/11/87 Tobacco: How many years used: 26 Second Hand Exposure: Yes Smoking risk assessment performed?: Yes Alcohol Intake: current Alcohol Intake frequency: a few times a month Alcohol type: beer and wine Drug use: Never Substance use type: does not use Adopted: No Caregiver/Support person: No Foster care: No Household members: none Housing: house Number of Children: 3 number of grandchildren: 3 Communication Needs: Hard of Hearing Education Level: college Details: Doctorate in Education. 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 Pets and animals: Yes Pets and animals: dog(s) Sexually active: No Do you think of yourself as: straight/heterosexual Current gender identity: female What is your relationship status?: How often do you talk on the phone with friends or family?: three or more times per week How often do you get together with friends or relatives?: three or more times per week Do you belong to any clubs or organized social groups?: yes Panel score (0-1 are the most socially isolated patients): 2 What type of physical activity do you participate in: walking and other Details: hiking,yard work Duration: 30-45 minutes/day Frequency: daily Kylah/Church: No preference Special kylah needs: No Seatbelt use: always Helmet use: No Drive intox or ride w/intox vending route driver: No Working smoke detector in home: Yes Carbon monox detector in home: Yes Firearms in home: Yes Do you feel safe in your relationship?: Yes Victim of physical abuse: No Victim of sexual abuse: No Additional Social history: Enjoys travelling, caring for her poodles. Does volunteer work for [employer].
[2025-02-27 11:13] LABS: Troponin I 7 ng/L (<or=51)
[2025-02-27] MEDS: Normal Saline Flush 10 ML SYR IVP (12:31)
[2025-02-27] MEDS: Normal Saline - Diluent 50 ML VIAL IJ (12:31)
[2025-02-27] MEDS: Omnipaque 350 MG/ML 100 ML BTL IJ (12:31)
--- NOTE | 2025-02-27 12:45 | DI.CT_ITS ---
Exam(s) CT BRAIN NECK CTA EXAM: CT BRAIN NECK CTA CLINICAL HISTORY: syncope. TECHNIQUE: Imaging Protocol: Axial CT angiography was performed with multi- slice acquisition and multi-planar and/or 3D reconstructions. CONTRAST MATERIAL: Intravenous: Omnipaque 350 contrast volume:70 mL COMPARISON: CT HEAD WITHOUT CONTRAST from 01/02/2014 FINDINGS: CT Head W/O and W: Ventricles and Extra axial spaces: Normal in size and morphology for the patient's age. Hemorrhage: None. Cerebral parenchyma: There are areas of decreased attenuation in the white matter consistent with chronic microvascular ischemic disease. There is an area of encephalomalacia involving the left cerebellum. No evidence of an acute territorial infarct is seen at this time. Midline shift: None. Brainstem/Cerebellum: Normal. Calvarium: Normal. Visualized Paranasal sinuses/Mastoids: Clear. Soft Tissues: Unremarkable. Enhancement: Unremarkable. CTA Neck W: Common Carotid: Right: No dissection, occlusion or significant stenosis. Left: No dissection, occlusion or significant stenosis. External Carotid: Right: No occlusion or significant stenosis. Left: No occlusion or significant stenosis. Internal Carotid: Right: No dissection, occlusion or significant stenosis. Left: No dissection, occlusion or significant stenosis. Mild atherosclerotic calcification in the proximal internal carotid artery but no significant stenosis is present. Vertebral Artery: Right: No dissection, occlusion or significant stenosis. Left: No dissection, occlusion or significant stenosis. Lung Apices: Moderately severe centrilobular emphysematous changes are present. Bones: Within normal limits for the patient's age. Soft Tissues: Normal. Thyroid gland: Unremarkable. CTA Brain W: Internal Carotid Arteries: There is mild atherosclerotic calcification in the cavernous portions of the internal carotid arteries bilaterally but no significant stenosis is seen. No aneurysm or occlusion is present. Anterior Cerebral Arteries: Right: No aneurysm, occlusion or significant stenosis. Left: No aneurysm, occlusion or significant stenosis. Middle Cerebral Arteries: Right: No aneurysm, occlusion or significant stenosis. Left: No aneurysm, occlusion or significant stenosis. Posterior Cerebral Arteries: Both posterior cerebral arteries arise predominantly from the posterior communicating arteries which is a normal variant. Right: No aneurysm, occlusion or significant stenosis. Left: No aneurysm, occlusion or significant stenosis. Vertebral Arteries: Right: No aneurysm, occlusion or significant stenosis. Left: No aneurysm, occlusion or significant stenosis. Basilar Artery: No aneurysm, occlusion or significant stenosis. IMPRESSION: 1. No large vessel occlusion or significant stenosis on the CT angiography of the head. 2. No acute intracranial process. 3. No occlusion or significant stenosis on the CT angiography of the neck. RADIATION DOSE DELIVERED: 2,181.76mGy.cm Total DLP DATA REPOSITORY: All CT scans at this facility are submitted to the National Radiology Data Registry (NRDR) Dose Index Registry (DIR) with the [employer] (ACR). RADIATION OPTIMIZATION: All CT scans at this facility use at least one of these dose optimization techniques: automated exposure control; mA and/or kV adjustment per patient size (includes targeted exams where dose is matched to clinical indication); or iterative reconstruction.
[2025-02-27] MEDS: Normal Saline 1,000 ML 1000 ML IV (13:37)
--- NOTE | 2025-02-27 14:38 | NUR.NOTE ---
Nursing Note: PT walked to BR and back to room this RN felt steady on feet
== END 2025-02-27 14:39 | disposition home or self-care (01) ==
PROVIDERS: Emergency Provider General Practice; PCP Family Medicine
DX: R79.89 Other specified abnormal findings of blood chemistry (principal); E87.1 Hypo-osmolality and hyponatremia; I10 Essential (primary) hypertension
CPT/HCPCS: 99284; 99285; 36415; 70496; 70498; 80053; 93005; 96360; 71045; 83605; 83735; 84484; 85025; 93010; J3490

== ENCOUNTER 2025-03-02 03:24 | Outpatient (CLI) | payer MEDICARE, SELFPAY ==
[2025-03-02 17:03] LABS: Abs Immature Grans 0.20 10^3/uL (0.0-0.06); HCT 39.5 % (36.0-46.0); HGB 13.0 g/dL (11.2-15.7); Immature Grans % 1.2 %; MCH 28.8 pg (27.0-33.0); MCHC 32.9 % (32.0-36.0); MCV 87 fL (80-95); MPV 10.4 fL (8.0-11.0); Platelet Count 274 10^3/uL (130-400); RBC 4.52 10^6/uL (3.93-5.22); RDW 13.4 % (11.7-14.6); RDW-SD 43.2 fL; WBC 16.89 10^3/uL (4.4-10.8)
[2025-03-02 17:33] LABS: ALT 65 U/L (14-59); AST 53 U/L (15-37); Albumin 2.4 g/dL (3.4-5.0); Alkaline Phosphatase 192 U/L (46-116); Anion Gap 10.1 mmol/L (3-11); BUN 16 mg/dL (7-18); Bilirubin, Total 1.6 mg/dL (0.2-1.0); CO2 21.9 mmol/L (21.0-32.0); Calcium 8.4 mg/dL (8.5-10.1); Chloride 97 mmol/L (98-107); Estimated GFR 45.48 (mL/min/1.73m2); Glucose 126 mg/dL (74-106); Potassium 3.9 mmol/L (3.5-5.1); Sodium 129 mmol/L (136-145); Total Protein 6.5 g/dL (6.4-8.2)
[2025-03-02 19:18] LABS: Sodium, Urine 5 mmol/L
== END 2025-03-02 03:25 | disposition home or self-care (01) ==
LOC: LBO 03:24
PROVIDERS: PCP Family Medicine; Visit Provider Family Medicine
DX: D75.1 Secondary polycythemia (principal); Z00.00 Encounter for general adult medical examination without abnormal findings; E87.1 Hypo-osmolality and hyponatremia
CPT/HCPCS: 36415; 80053; 84300; 85025

== ENCOUNTER 2025-03-07 00:57 | Outpatient (CLI) | payer MEDICARE, SELFPAY ==
--- NOTE | 2025-03-07 09:40 | DI.US_ITS ---
Exam(s) US ABDOMEN EXAM: US ABDOMEN CLINICAL HISTORY: elevated LFTs, alk phos,r79.89 TECHNIQUE: Ultrasound of complete upper abdomen performed using standard protocol. COMPARISON: US PELVIS TRANSVAG from 03/03/2013 FINDINGS: There is no ascites evident. LIVER: Right hepatic lobe liver extends caudally; probably Chemo's variant. There are no discrete focal hepatic lesions. GALLBLADDER/BILIARY: There are small shadowing gallstones noted. No gallbladder wall edema nor pericholecystic fluid The common hepatic duct isnot dilated, measuring 4-5mm at the level of anita hepatis. PANCREAS: There is no evidence of pancreatic mass nor dilatation of the pancreatic duct. SPLEEN: The spleen is not enlarged and there are no intrasplenic lesions evident. KIDNEYS:Right kidney measures 9.3 cm length and contains a 1 cm nonobstructive shadowing calculus in the inferior pole calyx region. It also contains a single 1.5 cm cyst in the superior pole. This benign cyst does not require further workup. There are no solid lesions in the right kidney. The left kidney measures 9.8 cm length and contains a 1.3 x 1.2 cm benign cyst in the inferior pole which does not require further workup. No solid masses nor calculi nor hydronephrosis in left kidney. ABDOMINAL AORTA: There is no evidence of abdominal aortic aneurysm. IVC: Normal diameter where visualized. IMPRESSION: 1. Cholelithiasis. No evidence of acute cholecystitis nor dilatation of the biliary tree. 2. There is a nonobstructive 1 cm calculus in lower pole of the right kidney. 3. No other significant ultrasound findings and there is no ascites. DATA REPOSITORY:
== END 2025-03-07 01:17 ==
LOC: DI 00:57
PROVIDERS: PCP Family Medicine; Visit Provider Family Medicine
DX: R79.89 Other specified abnormal findings of blood chemistry (principal); K80.80 Other cholelithiasis without obstruction
CPT/HCPCS: 36415; 82533; 76700; 82607; 83930; 84439; 84443

== ENCOUNTER 2025-03-07 08:57 | Outpatient (CLI) | payer MEDICARE, SELFPAY ==
[2025-03-07 10:32] LABS: TSH (W/Ref FT4) 9.57 uIU/mL (0.36-3.74); Vitamin B12 315 pg/mL (193-986)
== END 2025-03-07 08:58 | disposition home or self-care (01) ==
LOC: LBO 08:57
PROVIDERS: PCP Family Medicine; Visit Provider Family Medicine
DX: E87.1 Hypo-osmolality and hyponatremia (principal); E03.9 Hypothyroidism, unspecified; G31.84 Mild cognitive impairment of uncertain or unknown etiology
CPT/HCPCS: 36415; 82533; 83935; 82607; 83930; 84439; 84443

== ENCOUNTER 2025-03-07 21:30 | Outpatient (REF) | payer MEDICARE, SELFPAY ==
[2025-03-08 17:09] LABS: Osmolality, Urine 159 mOsm/kg (150-1150)
== END 2025-03-07 21:31 | disposition home or self-care (01) ==
LOC: LBN 21:30
PROVIDERS: PCP Family Medicine; Visit Provider Family Medicine
DX: E87.1 Hypo-osmolality and hyponatremia (principal)
CPT/HCPCS: 83935

== ENCOUNTER → 2025-03-15 02:11 | Outpatient (CLI) | payer MEDICARE, SELFPAY ==
--- NOTE | 2025-03-15 07:45 | DI.MRI_ITS ---
Exam(s) MR BRAIN WO/W EXAM: MR BRAIN WO/W CLINICAL HISTORY: EVALUATE ongoing memory loss,G31.84,MILD COGNITIVE IMPAIRTMENT TECHNIQUE: Multiplanar multisequence MRI of the brain was performed. CONTRAST MATERIAL: IV Contrast: 16 mL of Dotarem contrast administered. COMPARISON: CT HEAD WITHOUT CONTRAST from 01/02/[address] BRAIN NECK CTA from 02/27/2025 FINDINGS: VENTRICLES AND EXTRA AXIAL SPACES: Normal in size and morphology for the patient's age. HEMORRHAGE: None. CEREBRAL PARENCHYMA: No focus of restricted diffusion to suggest acute infarct. No space-occupying lesion identified. There are several areas of hyperintense signal seen in the white matter on the FLAIR and T2 weighted images most suggestive of chronic microvascular ischemic disease. MIDLINE SHIFT: None. BRAINSTEM/CEREBELLUM: Normal. CALVARIUM: Normal. ENHANCEMENT: No suspicious enhancement identified. VISUALIZED PARANASAL SINUSES/MASTOIDS: There is a small amount of fluid seen in the mastoid air cells bilaterally. The remaining visualized paranasal sinuses are clear. IGIUGIG OF [place]: Normal flow void. PITUITARY GLAND: Unremarkable. OTHER FINDINGS: IMPRESSION: 1. Age-appropriate ventricular and sulcal size is noted. There is generalized and symmetric cerebral atrophy present. 2. There is no evidence of an acute infarct. 3. Findings consistent with chronic microvascular ischemic disease. DATA REPOSITORY:
[2025-03-15] MEDS: Gadoterate meglumine 20 ML SYRINGE IVP (14:23)
[2025-03-15] MEDS: Normal Saline Flush 10 ML SYR IVP (14:24)
== END ==
LOC: DI 02:12
PROVIDERS: PCP Family Medicine; Visit Provider Family Medicine
DX: G31.84 Mild cognitive impairment of uncertain or unknown etiology (principal)
CPT/HCPCS: 70553

== ENCOUNTER 2025-03-24 10:57 | Outpatient (CLI) | payer MEDICARE, SELFPAY ==
[2025-03-24 14:31] LABS: Abs Immature Grans 0.03 10^3/uL (0.0-0.06); HCT 43.3 % (36.0-46.0); HGB 14.4 g/dL (11.2-15.7); Immature Grans % 0.4 %; MCH 30.2 pg (27.0-33.0); MCHC 33.3 % (32.0-36.0); MCV 91 fL (80-95); MPV 10.4 fL (8.0-11.0); Platelet Count 369 10^3/uL (130-400); RBC 4.77 10^6/uL (3.93-5.22); RDW 14.6 % (11.7-14.6); RDW-SD 48.6 fL; WBC 7.89 10^3/uL (4.4-10.8)
[2025-03-24 14:39] LABS: ALT 17 U/L (10-49); AST 24 U/L (<34); Albumin 3.8 g/dL (3.4-5.0); Alkaline Phosphatase 76 U/L (46-116); Anion Gap 6.8 mmol/L (3-11); BUN 15 mg/dL (9-23); Bilirubin, Total 1.00 mg/dL (0.2-1.2); CO2 27.2 mmol/L (20.0-31.0); Calcium 9.3 mg/dL (8.3-10.6); Chloride 104 mmol/L (98-107); Glucose 98 mg/dL (74-106); Potassium 4.4 mmol/L (3.5-5.1); Sodium 138 mmol/L (136-145); Total Protein 7.5 g/dL (5.7-8.2)
== END 2025-03-24 10:58 | disposition home or self-care (01) ==
LOC: LOS 10:58
PROVIDERS: PCP Family Medicine; Visit Provider Family Medicine
DX: R79.89 Other specified abnormal findings of blood chemistry (principal); Z00.00 Encounter for general adult medical examination without abnormal findings
CPT/HCPCS: 36415; 80053; 85025

== ENCOUNTER → 2025-03-29 02:07 | Outpatient (CLI) | payer MEDICARE, SELFPAY ==
--- NOTE | 2025-03-29 07:15 | DI.CT_ITS ---
Exam(s) CT CHEST/ABD/PEL W EXAM: CT CHEST/ABD/PEL W CLINICAL HISTORY: SIADH, hyponatremia,abnl LFTs,elev Alk phos,E22.2. TECHNIQUE: Imaging Protocol: Axial computed tomography images with coronal and sagittal reformatted images were created and reviewed. Computer aided detection (CAD) was utilized. CONTRAST MATERIAL: Intravenous: Omnipaque 350 Contrast volume:75 ml Oral: yes COMPARISON: US US ABDOMEN from 03/07/2025 FINDINGS: CHEST: Pulmonary parenchyma: [id number] emphysematous changes are present, greatest at the right upper lobe. No consolidation. No dominant measurable mass. Tracheobronchial tree: No bronchiectasis. No mucous plugging.No bronchial wall thickening. Pleura: No effusion or pneumothorax. Mediastinum: Within normal limits. Pulmonary arteries: No visible emboli. Cardiovascular: The heart is mildly enlarged. Minimal coronary artery calcifications. No pericardial effusion. Ascending aorta measures 3.7 cm. Mild atherosclerotic changes. Bones: Unremarkable for age. No lytic or blastic lesions. No compression fractures. Soft tissues: Unremarkable. ABDOMEN and PELVIS: Liver: Normal density. Small left lobe and elongated right lobe, Chemo's lobe. No suspicious mass. Gallbladder and biliary tract: Few small stones are noted dependent portion of the gallbladder. No evidence wall thickening. No biliary dilatation. Pancreas: Normal density, no abnormal calcifications or inflammatory process. Spleen: Normal. Kidneys: Normal size, contour and axis. 14 millimeter stone is noted at the lower pole of the right kidney. No obstructive uropathy. Simple renal cysts. No suspicious masses seen. Adrenal glands: No masses seen. Aorta: Abdominal portion non-dilated. Mild atherosclerotic changes. Lymph nodes: Within normal limits. Soft tissues: Unremarkable. Bladder: Unremarkable. Bowel: The small bowel and colon are well opacified with oral contrast to the level of the lower descending colon. There is [id number] sigmoid diverticulosis but no evidence of diverticulitis. No obstruction or bowel wall thickening. The appendix is normal. Peritoneal cavity: No ascites. No focal collection. No mesenteric inflammatory response. No free air. Bones: Degenerative changes and mild scoliosis. Reproductive organs: Unremarkable for age. IMPRESSION: No acute abnormality in the chest, abdomen or pelvis. Emphysematous changes are noted greater at the right upper lobe. Nonobstructing stones present at the lower pole of the right kidney. Mild sigmoid diverticulosis without evidence of diverticulitis. RADIATION DOSE DELIVERED: Total DLP DATA REPOSITORY: All CT scans at this facility are submitted to the National Radiology Data Registry (NRDR) Dose Index Registry (DIR) with the [employer] (ACR). RADIATION OPTIMIZATION: All CT scans at this facility use at least one of these dose optimization techniques: automated exposure control; mA and/or kV adjustment per patient size (includes targeted exams where dose is matched to clinical indication); or iterative reconstruction.
[2025-03-29] MEDS: Barium Sulfate 2% W/V-Berry Smoothie 450 ML BTL PO (08:32)
[2025-03-29] MEDS: Omnipaque 350 MG/ML 100 ML BTL IJ (10:24)
[2025-03-29] MEDS: Normal Saline - Diluent 50 ML VIAL IJ (10:24)
[2025-03-29] MEDS: Normal Saline Flush 10 ML SYR IVP (10:25)
== END ==
LOC: DI 02:07
PROVIDERS: PCP Family Medicine; Visit Provider Family Medicine
DX: K57.30 Diverticulosis of large intestine without perforation or abscess without bleeding (principal); E22.2 Syndrome of inappropriate secretion of antidiuretic hormone
CPT/HCPCS: 74177; 71260; J3490

== ENCOUNTER 2025-04-07 07:24 | Emergency (ER) | payer MEDICARE, SELFPAY ==
[2025-04-07 07:33] VITALS: BP 161/91; PULSE 68; RESP 18; O2SAT 99
[2025-04-07 07:37] VITALS: BP 161/91; PULSE 68; RESP 18; O2SAT 99
[2025-04-07] MEDS: Lidocaine 1% Pres-Free 5 ML VIAL (08:00)
[2025-04-07] MEDS: Acetaminophen 500 MG TAB 1000 MG PO (08:00)
[2025-04-07] MEDS: Bacitracin 1 PACKET (08:12)
--- NOTE | 2025-04-07 08:49 | W.ED.GENAD ---
Discharge Plan Disposition Patient Disposition: Home Condition: Stable Discharge Details Clinical Impression: Dog bite of left hand, Laceration of hand, left Primary Care Provider: [facility] ED Provider: Carol Rooney Home Meds and New Rx's Prescriptions: New amoxicillin-pot clavulanate 875-125 mg tablet 1 tab PO BID 7 Days Qty: 14 0RF No Action losartan 100 mg tablet 100 mg PO DAILY Qty: 90 3RF atenolol 50 mg tablet 100 mg PO DAILY Qty: 90 3RF calcium carbonate-vitamin D3 1 EACH tablet 1 ea PO DAILY Rx Instructions: 600mg/800iu aspirin 325 MG tablet 325 mg PO DAILY atorvastatin 20 mg tablet 20 mg PO QHS Qty: 90 3RF Discharge Instructions Instructions: Laceration Repair With Stitches ED, Animal Bites ED Additional Instructions: You were seen in the emergency department today for evaluation after a dog bite to your left hand. In our department a full physical examination performed, and thankfully the laceration involves just the skin, and not any of the deeper structures of your hand. You had an x-ray that was negative for fracture, your tetanus shot is up-to-date, and the wound was thoroughly cleaned out. We did have to put some stitches in given the extent of the damage, there are [address] and these will need to be removed in 7 to 10 days. Please keep the area clean and dry, use topical antibiotic ointment at least once per day, and change the dressing whenever it becomes wet or soiled. You can use Tylenol as needed for management of any pain in your hand. Dog bites have a risk of becoming infected, and for this reason we have started you on antibiotics. Please take all of this antibiotic until it is gone, even if you start to feel better. If you notice worsening redness that spreads up your hand to your arm, you develop a fever, or of any other concerns for infection you should be reevaluated by your primary care or in our emergency department. Please follow-up with your primary care provider in the next few days to discuss this visit and any symptoms that change, worsen, or persist. Thank you for allowing us to be part of your care. Stand Alone Forms: Portal Information HPI General Mode of arrival: ambulatory. Date/Time Provider Initiated Documentation: 04/07/25 07:40. Limitations to Documentation: no limitations. Information obtained by: patient, family and old records reviewed. HPI Narrative: This is an 79-year-old female patient with a past medical history significant for SIADH, CKD, osteoporosis, hypertension, presenting for evaluation after dog bite. The patient sustained a dog bite on her left hand attempting to have the caller of her family members dog. The dog is fully vaccinated, and the patient did not sustain injury to any other part of her body. Prior to this event she was in her normal state of health. She is up-to-date on her tetanus vaccine, has not taken any medications for management of pain prior to arrival. The patient does take a daily baby aspirin and notes that she had some persistent bleeding on scene despite bandaging. Related Data Home Medications ?Medication ?Instructions ?Recorded ?Confirmed calcium 600 mg (as 1 ea PO DAILY 07/27/12 04/07/25 carbonate)-vitamin D3 5 mcg (200 unit) tablet aspirin 325 mg tablet 325 mg PO DAILY 01/24/14 04/07/25 atorvastatin 20 mg tablet 20 mg PO QHS #90 tabs 08/08/24 04/07/25 losartan 100 mg tablet 100 mg PO DAILY #90 tabs 08/31/24 04/07/25 atenolol 50 mg tablet 100 mg (2 x 50 mg) PO DAILY #90 03/24/25 04/07/25 tab-caps amoxicillin 875 mg-potassium 1 tab PO BID 7 days #14 tabs 04/07/25 clavulanate 125 mg tablet Previous Rx's ?Medication ?Instructions ?Recorded atorvastatin 20 mg tablet 20 mg PO QHS #90 tabs 08/08/24 losartan 100 mg tablet 100 mg PO DAILY #90 tabs 08/31/24 atenolol 50 mg tablet 100 mg (2 x 50 mg) PO DAILY #90 03/24/25 tab-caps amoxicillin 875 mg-potassium 1 tab PO BID 7 days #14 tabs 04/07/25 clavulanate 125 mg tablet Allergies Allergy/AdvReac Type Severity Reaction Status Date / Time amlodipine Allergy Severe Swelling/Ed Verified 04/07/25 07:37 ken rosuvastatin AdvReac Intermediate loose Verified 04/07/25 07:37 stools & incontinence tide detergent Allergy Severe RASH Uncoded 04/07/25 07:37 General Stated Complaint: AnimalBite JENNIFER: 3 Exam Narrative Exam Narrative: Gen: Awake and alert, in no apparent distress HEENT: Non-icteric sclera Neck: Supple Lungs: No apparent respiratory distress, normal respiratory effort. CV: Appears well perfused Abdomen: Non-distended MSK: Moves 4 extremities without apparent limitation in ROM. The patient's left hand has a large skin flap/tear on the dorsal aspect, without involvement of the deeper structures on full wound exploration. This is approximately 6 cm in total length, very jagged in the shape of an 'M'. Bleeding is controlled, the patient has preserved strength, movement and sensation/circulation distally. There is a small puncture wound to the thenar aspect of the left hand, 0.5 cm and hemostatic Skin: Visualized skin without rashes, cyanosis. Neuro: Normal Gait, no obvious focal deficits or facial asymmetry. Speaks in full, clear sentences. Psych: Appropriate for situation. Course Vital Signs Vital signs: Vital Signs Pulse 68 04/07/25 07:33 Respiratory Rate 18 04/07/25 07:33 Blood Pressure 161/91 H 04/07/25 07:33 Pulse Oximetry 99 04/07/25 07:33 Pulse 68 04/07/25 07:37 Respiratory Rate 18 04/07/25 07:37 Blood Pressure 161/91 H 04/07/25 07:37 Pulse Oximetry 99 04/07/25 07:37 Procedure Laceration Laceration 1: Date of Procedure: 04/07/25 Time of procedure: 08:49 Provider that performed the procedure: Carol Rooney Patient Consented: Verbally Site: hand Side (If applicable): left Description: flap and irregular Depth: simple, single layer Local anesthetic: Lidocaine 1% Amount of anesthesia used (mL): 12 Pre-repair:: wound explored, irrigated extensively and deep structures intact Skin layer closed with: nylon Suture size: 4-0 Number of sutures:: 12 Technique: simple, interrupted Complications: None Procedure Description/Note: The patient had a 6 cm very irregular skin tear/flap of the dorsal aspect of her left hand. Given the extent of the damage the decision was made to proceed with loose approximation despite this being a dog bite. Using 4-0 Ethilon, and after adequate anesthetic effect from the lidocaine, the skin flap was loosely reapproximated in anatomical position using 12 simple interrupted sutures. The patient tolerated this procedure well with adequate cosmesis after this procedure, patient was dressed using topical antibiotic ointment and a nonadherent gauze pad. Medical Decision Making This is AN 79-year-old female patient presenting for evaluation after dog bite. Differential includes but is not limited to skin tear, laceration, puncture wound, certainly considered foreign body and fracture, considered deep structure injury including tendon, neurovascular injury though this is less consistent with the patient's history and physical examination. This is an isolated complaint, the dog is up-to-date on rabies vaccination and the patient is up-to-date on tetanus vaccination. The injury occurred today and there is no evidence for superinfection on my physical examination. X-ray obtained and shows no evidence of fracture or foreign body. The wound was repaired as noted above. The puncture wound on the thenar aspect is small and will be left open given the concern for potential infection. I will provide the patient with a prescription for Augmentin for prophylaxis, and I counseled the patient on suture care and removal and dressing management. At this time, the patient has had a full medical evaluation and is safe for discharge to home. They are hemodynamically stable, ambulatory, and tolerating PO. They are understanding of the follow-up plan and return precautions. They left our facility without incident. Carol Rooney MD [facility] All Active Problems (Updated 04/07/25 @ 09:10 by Carol Rooney MD) Laceration of hand, left (Acute) Dog bite of left hand (Acute) SIADH (syndrome of inappropriate ADH production) (Acute) Mild cognitive impairment with memory loss (Acute) Abnormal LFTs (Acute) CKD stage 3b, GFR 30-44 ml/min (Acute) Osteoporosis (Chronic) Hypercholesterolemia (Chronic 06/03/16) Hypertension (Chronic) Medical History History of tobacco use (1987) 15 packyr hx, quit 1987 Closed fracture of clavicle (11/08/07) Herpes zoster Ventricular tachycardia (01/24/14) [place] [facility] 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 No problems noted. Maternal Grandmother , 81 Essential hypertension Heart disease Paternal Grandmother Essential hypertension Heart disease Brother Essential hypertension Son No problems noted. Son No problems noted. Daughter Depression Family History CHF (congestive heart failure) Heart disease Myocardial infarction Social History Smoking/Tobacco Use Status: Former Tobacco Use tobacco type: cigarettes Quit Date: 05/11/87 Tobacco: How many years used: 26 Second Hand Exposure: Yes Smoking risk assessment performed?: Yes Alcohol Intake: current Alcohol Intake frequency: a few times a month Alcohol type: beer and wine Drug use: Never Substance use type: does not use Adopted: No Caregiver/Support person: No Foster care: No Household members: none Housing: house Number of Children: 3 number of grandchildren: 3 Communication Needs: Hard of Hearing Education Level: college Details: Doctorate in Education. 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 Pets and animals: Yes Pets and animals: dog(s) Sexually active: No Do you think of yourself as: straight/heterosexual Current gender identity: female What is your relationship status?: How often do you talk on the phone with friends or family?: three or more times per week How often do you get together with friends or relatives?: three or more times per week Do you belong to any clubs or organized social groups?: yes Panel score (0-1 are the most socially isolated patients): 2 What type of physical activity do you participate in: walking and other Details: hiking,yard work Duration: 30-45 minutes/day Frequency: daily Kylah/Jewish: No preference Special kylah needs: No Seatbelt use: always Helmet use: No Drive intox or ride w/intox clark driver: No Working smoke detector in home: Yes Carbon monox detector in home: Yes Firearms in home: Yes Do you feel safe in your relationship?: Yes Victim of physical abuse: No Victim of sexual abuse: No Additional Social history: Enjoys travelling, caring for her poodles. Does volunteer work for [employer].
--- NOTE | 2025-04-07 08:59 | DI.RAD_ITS ---
Exam(s) XR HAND LT COMPLETE EXAM: XR HAND LT COMPLETE CLINICAL HISTORY: dog bite eval fx. TECHNIQUE: 2D digital imaging was performed. Three views. COMPARISON: No exams were available for comparison FINDINGS: BONES: No acute fracture is present. No bony destructive lesion is seen. JOINTS: No dislocation present. SOFT TISSUE: Air within the soft tissues of the metacarpal region. IMPRESSION: Soft tissue air. No evidence of fracture. DATA REPOSITORY: RADIATION DOSE DELIVERED:
--- NOTE | 2025-04-07 09:09 | NUR.NOTE ---
Nursing Note: Official animal bite report form filled out and faxed to [facility] officer. AP @[id number]
[2025-04-07] MEDS: Amoxicillin 875/Clav. 125 TAB PO (09:17)
[2025-04-07 09:25] VITALS: BP 178/88; PULSE 60; RESP 18; O2SAT 98
== END 2025-04-07 09:27 | disposition home or self-care (01) ==
PROVIDERS: Emergency Provider Emergency Medicine; PCP Family Medicine
DX: S61.452A Open bite of left hand, initial encounter (principal); W54.0XXA Bitten by dog, initial encounter
CPT/HCPCS: 99283 ×2; 12002; 73130; J2003

== ENCOUNTER 2025-04-08 11:55 | Emergency (ER) | payer MEDICARE, SELFPAY ==
[2025-04-08 11:57] VITALS: BP 150/62; PULSE 82; RESP 16; TEMP 36.9; O2SAT 98
--- NOTE | 2025-04-08 11:57 | W.ED.GENAD ---
Discharge Plan Disposition Patient Disposition: Home Discharge Details Clinical Impression: Dog bite of left hand Primary Care Provider: [facility] ED Provider: Trever Del Valle Home Meds and New Rx's Prescriptions: Continued losartan 100 mg tablet 100 mg PO DAILY Qty: 90 3RF tramadol 50 mg tablet 50 mg PO BID PRN (Reason: pain) Qty: 10 0RF atenolol 100 mg tablet 100 mg PO DAILY Qty: 90 3RF calcium carbonate-vitamin D3 1 EACH tablet 1 ea PO DAILY Rx Instructions: 600mg/800iu aspirin 325 MG tablet 325 mg PO DAILY atorvastatin 20 mg tablet 20 mg PO QHS Qty: 90 3RF amoxicillin-pot clavulanate 875-125 mg tablet 1 tab PO BID 7 Days Qty: 14 0RF Discharge Instructions Additional Instructions: You are seen in the emergency department for your hand laceration. As we discussed please continue taking your antibiotics twice a day morning and night until you have finished the bottle. Please return to the emergency department if you develop any fevers or decreased range of motion in your hand. Please follow-up as needed with your primary care provider. Some swelling is normal. Please elevate your hand. You may use ice 20 minutes on 20 as needed throughout the day. For your pain please take medications as follows: 1. Take acetaminophen (Tylenol), 1,000 mg (two 500 mg tabs) every 6 hours Stand Alone Forms: Portal Information Discharge Data Discharge Date/Time-TO BE ENTERED AT DEPARTURE: 04/08/25 12:35 HPI General Date/Time Provider Initiated Documentation: 04/08/25 11:56. HPI Narrative: MDM This is an overall very well-appearing normothermic and not tachycardic 79-year-old female with healing nondominant left hand laceration for which patient was discharged with an empiric trial of expectant outpatient management. No pain out of proportion to suggest necrotizing soft tissue infection. Left hand warm well-perfused so I am not concerned for critical limb ischemia. I considered sepsis however patient has reassuring vital signs and denies fevers so I did not feel patient required broad-spectrum antibiotics. Patient her daughter and I discussed twice daily dosing of amoxicillin clavulanic acid. Tetanus has previously been updated. Given intact range of motion and no subsequent trauma I did not feel patient required a plain film. Patient her daughter and I discussed that she should return if she developed any fevers or difficulty moving her hand. HPI This is a patient with a history of a dog bite on her left hand presenting for re-evaluation. The patient is right-handed and sustained the injury from her own dog, which has been vaccinated against rabies. The patient reports no fever and maintains good mobility in her fingers, although there is some swelling. She has not been consistently elevating the affected hand. The patient expresses concern about the current state of her hand, drawing a comparison to a previous cat bite incident that resulted in a similar appearance. The patient was seen here 2 days ago and was prescribed antibiotics. She recently received a tetanus injection due to the expiration of her previous one. A follow-up consultation with her primary care physician was conducted after the initial visit. Exam General: Well-appearing in no acute distress speaking in complete sentences. Head: Normocephalic, atraumatic. Eye: Extraocular eye movements intact. No conjunctival injection. No scleral icterus. Ear, nose, mouth, throat: Grossly normal inspection. Normal voice, handling secretions normally. Neck: Trachea midline. Cardiovascular: Well-perfused distal extremities. Respiratory: Nonlabored respiration. Gastrointestinal: Nondistended abdomen. Musculoskeletal: Left hand warm well-perfused 2+ left radial pulse. Suture dorsal aspect laceration with no significant surrounding erythema. Small puncture healing on thenar eminence. Sensation motor function intact in the left hand across the radial, median, and ulnar nerve distributions. Cap refill less than 2 seconds in left fingertips. Skin: Normal for age and race, grossly normal temperature and turgor. No acute rash. Neurologic: Alert and appropriate, no apparent acute deficits. Related Data Home Medications ?Medication ?Instructions ?Recorded ?Confirmed calcium 600 mg (as 1 ea PO DAILY 07/27/12 04/08/25 carbonate)-vitamin D3 5 mcg (200 unit) tablet aspirin 325 mg tablet 325 mg PO DAILY 01/24/14 04/08/25 atorvastatin 20 mg tablet 20 mg PO QHS #90 tabs 08/08/24 04/08/25 losartan 100 mg tablet 100 mg PO DAILY #90 tabs 08/31/24 04/08/25 amoxicillin 875 mg-potassium 1 tab PO BID 7 days #14 tabs 04/07/25 04/08/25 clavulanate 125 mg tablet atenolol 100 mg tablet 100 mg PO DAILY #90 tab-caps 04/07/25 04/08/25 tramadol 50 mg tablet 50 mg PO BID PRN pain #10 tabs 04/07/25 04/08/25 Previous Rx's ?Medication ?Instructions ?Recorded atorvastatin 20 mg tablet 20 mg PO QHS #90 tabs 08/08/24 losartan 100 mg tablet 100 mg PO DAILY #90 tabs 08/31/24 amoxicillin 875 mg-potassium 1 tab PO BID 7 days #14 tabs 04/07/25 clavulanate 125 mg tablet atenolol 100 mg tablet 100 mg PO DAILY #90 tab-caps 04/07/25 tramadol 50 mg tablet 50 mg PO BID PRN pain #10 tabs 04/07/25 Allergies Allergy/AdvReac Type Severity Reaction Status Date / Time amlodipine Allergy Severe Swelling/Ed Verified 04/08/25 12:02 ken rosuvastatin AdvReac Intermediate loose Verified 04/08/25 12:02 stools & incontinence tide detergent Allergy Severe RASH Uncoded 04/08/25 12:02 General JENNIFER: 3 PFSH All Active Problems (Updated 04/08/25 @ 12:14 by Trever Del Valle MD) Laceration of hand, left (Acute) Dog bite of left hand (Acute) Mild cognitive impairment with memory loss (Chronic) MOCA 03/04 ; 04/04 Abnormal LFTs (Acute) CKD stage 3b, GFR 30-44 ml/min (Acute) Osteoporosis (Chronic) Hypercholesterolemia (Chronic 06/03/16) Hypertension (Chronic) Medical History (Updated 04/08/25 @ 12:14 by Trever Del Valle MD) SIADH (syndrome of inappropriate ADH production) improved with resuming hydration; workup negative. 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 No problems noted. Maternal Grandmother , 81 Essential hypertension Heart disease Paternal Grandmother Essential hypertension Heart disease Brother Essential hypertension Son No problems noted. Son No problems noted. Daughter Depression Family History CHF (congestive heart failure) Heart disease Myocardial infarction Social History Smoking/Tobacco Use Status: Former Tobacco Use tobacco type: cigarettes Quit Date: 05/11/87 Tobacco: How many years used: 26 Second Hand Exposure: Yes Smoking risk assessment performed?: Yes Alcohol Intake: current Alcohol Intake frequency: a few times a month Alcohol type: beer and wine Drug use: Never Substance use type: does not use Adopted: No Caregiver/Support person: No Foster care: No Household members: none Housing: house Number of Children: 3 number of grandchildren: 3 Communication Needs: Hard of Hearing Education Level: college Details: Doctorate in Education. 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 Pets and animals: Yes Pets and animals: dog(s) Sexually active: No Do you think of yourself as: straight/heterosexual Current gender identity: female What is your relationship status?: How often do you talk on the phone with friends or family?: three or more times per week How often do you get together with friends or relatives?: three or more times per week Do you belong to any clubs or organized social groups?: yes Panel score (0-1 are the most socially isolated patients): 2 What type of physical activity do you participate in: walking and other Details: hiking,yard work Duration: 30-45 minutes/day Frequency: daily Kylah/Presybeterian: No preference Special kylah needs: No Seatbelt use: always Helmet use: No Drive intox or ride w/intox dumpcart driver: No Working smoke detector in home: Yes Carbon monox detector in home: Yes Firearms in home: Yes Do you feel safe in your relationship?: Yes Victim of physical abuse: No Victim of sexual abuse: No Additional Social history: Enjoys travelling, caring for her poodles. Does volunteer work for [employer] [place].
== END 2025-04-08 12:35 | disposition home or self-care (01) ==
PROVIDERS: Emergency Provider Emergency Medicine; PCP Family Medicine
DX: S61.412D Laceration without foreign body of left hand, subsequent encounter (principal); W54.0XXD Bitten by dog, subsequent encounter
CPT/HCPCS: 99281; 99282

== ENCOUNTER 2025-04-14 10:11 | Emergency (ER) | payer MEDICARE, SELFPAY ==
--- NOTE | 2025-04-14 10:44 | W.ED.GENAD ---
Discharge Plan Disposition Patient Disposition: Home Condition: Stable Discharge Details Clinical Impression: Encounter for wound re-check Primary Care Provider: Le Calix ED Provider: Shiela Kincaid Home Meds and New Rx's Prescriptions: Continued losartan 100 mg tablet 100 mg PO DAILY Qty: 90 3RF tramadol 50 mg tablet 50 mg PO BID PRN (Reason: pain) Qty: 10 0RF atenolol 100 mg tablet 100 mg PO DAILY Qty: 90 3RF calcium carbonate-vitamin D3 1 EACH tablet 1 ea PO DAILY Rx Instructions: 600mg/800iu aspirin 325 MG tablet 325 mg PO DAILY atorvastatin 20 mg tablet 20 mg PO QHS Qty: 90 3RF Discharge Instructions Additional Instructions: elevate your hand above your hear as much as you are able tylenol as needed for pain apply a dressing only when you are out and about continue to wash with soap and water, but do not submerge wound allow to air dry as much as possible return on 04/19 for suture removal apply bacitracin daily after washing wound return with spreading redness, fever, worsening pain Stand Alone Forms: Portal Information Referrals: Le Calix MD [Primary Care Provider, Medicine] HPI General Date/Time Provider Initiated Documentation: 04/14/25 10:19. HPI Narrative: This 79-year-old female presents 8 days post dog bite which was sutured secondary to extent of trauma/partial degloving. Patient presents for suture removal. States the area has been persistently tender denies any fever chills or significant change in pain. Denies any strength or sensation change Related Data Home Medications ?Medication ?Instructions ?Recorded ?Confirmed calcium 600 mg (as 1 ea PO DAILY 07/27/12 04/14/25 carbonate)-vitamin D3 5 mcg (200 unit) tablet aspirin 325 mg tablet 325 mg PO DAILY 01/24/14 04/14/25 atorvastatin 20 mg tablet 20 mg PO QHS #90 tabs 08/08/24 04/14/25 losartan 100 mg tablet 100 mg PO DAILY #90 tabs 08/31/24 04/14/25 atenolol 100 mg tablet 100 mg PO DAILY #90 tab-caps 04/07/25 04/14/25 tramadol 50 mg tablet 50 mg PO BID PRN pain #10 tabs 04/07/25 04/14/25 Previous Rx's ?Medication ?Instructions ?Recorded atorvastatin 20 mg tablet 20 mg PO QHS #90 tabs 08/08/24 losartan 100 mg tablet 100 mg PO DAILY #90 tabs 08/31/24 atenolol 100 mg tablet 100 mg PO DAILY #90 tab-caps 04/07/25 tramadol 50 mg tablet 50 mg PO BID PRN pain #10 tabs 04/07/25 Allergies Allergy/AdvReac Type Severity Reaction Status Date / Time amlodipine Allergy Severe Swelling/Ed Verified 04/14/25 10:24 ken rosuvastatin AdvReac Intermediate loose Verified 04/14/25 10:24 stools & incontinence tide detergent Allergy Severe RASH Uncoded 04/14/25 10:24 General JENNIFER: 3 Exam Narrative Exam Narrative: Patient with large sutured laceration on the dorsal aspect of her right hand, there is no evidence of secondary infection and she is neurovascularly intact. There is partial scab formation at the distal aspects, however the wound is only partially healed. Medical Decision Making Patient presents for suture removal of right hand after dog bite, however the wound is only partially healed and removal of the stitches at this time will likely cause wound dehiscence which is more of a risk than benefit. There is no evidence of secondary infection patient's been compliant with her antibiotics. She will return on 1209 to have the sutures removed. [facility] All Active Problems (Updated 04/14/25 @ 10:30 by GARETT Diamond) Encounter for wound re-check (Acute) Laceration of hand, left (Acute) Dog bite of left hand (Acute) Mild cognitive impairment with memory loss (Chronic) MOCA 03/04 ; 04/04 Abnormal LFTs (Acute) CKD stage 3b, GFR 30-44 ml/min (Acute) Osteoporosis (Chronic) Hypercholesterolemia (Chronic 06/03/16) Hypertension (Chronic) Medical History (Updated 04/14/25 @ 10:30 by GARETT Diaomnd) SIADH (syndrome of inappropriate ADH production) improved with resuming hydration; workup negative. 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 No problems noted. Maternal Grandmother , 81 Essential hypertension Heart disease Paternal Grandmother Essential hypertension Heart disease Brother Essential hypertension Son No problems noted. Son No problems noted. Daughter Depression Family History CHF (congestive heart failure) Heart disease Myocardial infarction Social History Smoking/Tobacco Use Status: Former Tobacco Use tobacco type: cigarettes Quit Date: 05/11/87 Tobacco: How many years used: 26 Second Hand Exposure: Yes Smoking risk assessment performed?: Yes Alcohol Intake: current Alcohol Intake frequency: a few times a month Alcohol type: beer and wine Drug use: Never Substance use type: does not use Adopted: No Caregiver/Support person: No Foster care: No Household members: none Housing: house Number of Children: 3 number of grandchildren: 3 Communication Needs: Hard of Hearing Education Level: college Details: Doctorate in Education. 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 Pets and animals: Yes Pets and animals: dog(s) Sexually active: No Do you think of yourself as: straight/heterosexual Current gender identity: female What is your relationship status?: How often do you talk on the phone with friends or family?: three or more times per week How often do you get together with friends or relatives?: three or more times per week Do you belong to any clubs or organized social groups?: yes Panel score (0-1 are the most socially isolated patients): 2 What type of physical activity do you participate in: walking and other Details: hiking,yard work Duration: 30-45 minutes/day Frequency: daily Kylah/Anabaptism: No preference Special kylah needs: No Seatbelt use: always Helmet use: No Drive intox or ride w/intox lumber driver: No Working smoke detector in home: Yes Carbon monox detector in home: Yes Firearms in home: Yes Do you feel safe in your relationship?: Yes Victim of physical abuse: No Victim of sexual abuse: No Additional Social history: Enjoys travelling, caring for her poodles. Does volunteer work for [employer] [place].
[2025-04-14 10:48] VITALS: BP 165/98; PULSE 70; RESP 16; TEMP 37; O2SAT 98
== END 2025-04-14 10:50 | disposition home or self-care (01) ==
PROVIDERS: Emergency Provider Physician Assistant; PCP Family Medicine
DX: Z48.02 Encounter for removal of sutures (principal); S61.451D Open bite of right hand, subsequent encounter; W54.0XXD Bitten by dog, subsequent encounter
CPT/HCPCS: 99282; 99281

== ENCOUNTER 2025-04-19 10:37 | Emergency (ER) | payer MEDICARE, SELFPAY ==
[2025-04-19 10:42] VITALS: BP 193/114; PULSE 68; RESP 20; TEMP 36.8; O2SAT 95
[2025-04-19 11:44] VITALS: BP 174/99; PULSE 68; RESP 14; O2SAT 95
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
== END 2025-04-19 11:45 | disposition home or self-care (01) ==
PROVIDERS: Emergency Provider Physician Assistant; PCP Family Medicine
DX: Z48.02 Encounter for removal of sutures (principal); S61.412D Laceration without foreign body of left hand, subsequent encounter; W54.0XXD Bitten by dog, subsequent encounter